=== PATIENT | female | born 1995 | race Caucasian/White ===

== ENCOUNTER 2017-05-24 15:43 | Outpatient (CLI) | payer MEDICAID | END 2017-05-24 16:38 | disposition home or self-care (01) | LOC: LC 15:43 | PROVIDERS: ATTEND Student in an Organized Health Care Education/Training Program | PROC: 4A1HXCZ Monitoring of Products of Conception, Cardiac Rate, External Approach (ICD-10-PCS; principal; 2017-05-24) | DX: Z34.93 Encounter for supervision of normal pregnancy, unspecified, third trimester (principal); Z36 Encounter for antenatal screening of mother; Z3A.38 38 weeks gestation of pregnancy | CPT/HCPCS: 59025 ==

== ENCOUNTER 2017-05-26 21:23 | Inpatient (IN) | payer MEDICAID ==
[2017-05-26] MEDS ORDERED: DEXTROSE 50%-WATER 25 GM/50 ML DISP.SYRIN IV PRN ×2 (22:01)
[2017-05-26] MEDS ORDERED: GLUCAGON,HUMAN RECOMB 1 MG INJ SUBCUT PRN (22:01)
[2017-05-26] MEDS ORDERED: DEXTROSE 40% GEL 15 GM TUBE PO PRN ×2 (22:01)
[2017-05-26 22:45] LABS: ABSOLUTE BASOPHILS # (AUTO) 0.1 10^3/uL (0.0-0.2); ABSOLUTE EOSINOPHILS # (AUTO) 0.3 10^3/uL (0.0-0.6); ABSOLUTE LYMPHOCYTES (AUTO) 3.9 10^3/uL (0.5-4.7); ABSOLUTE MONOCYTES (AUTO) 1.2 10^3/uL (0.1-1.4); ABSOLUTE NEUT (AUTO) 7.3 10^3/uL (1.7-8.2); BASOPHILS % (AUTO) 0.4 % (0-2); EOSINOPHILS % (AUTO) 2.2 % (0-6); HEMATOCRIT 31.8 % (36.0-47.0); HEMOGLOBIN 11.3 g/dL (12.0-15.5); HGB HCT DIFFERENCE 2.1; LYMPHOCYTES % (AUTO) 30.7 % (13-45); MEAN CORPUSCULAR HEMOGLOBIN 33.4 pg (27.0-33.4); MEAN CORPUSCULAR HGB CONC 35.5 g/dL (32.0-36.0); MEAN CORPUSCULAR VOLUME 94 fl (80-97); MONOCYTES % (AUTO) 9.1 % (3-13); RED BLOOD COUNT 3.37 10^6/uL (3.72-5.28); SEGMENTED NEUTROPHILS % (AUTO) 57.6 % (42-78); WHITE BLOOD COUNT 12.7 10^3/uL (4.0-10.5)
[2017-05-27] MEDS ORDERED: INFLUENZA ADLT QUAD (36MOS+) 2017-18 VAC 0.5 ML SYR IM PRN (00:04)
[2017-05-27 01:23] LABS: APPEARANCE,URINE SLIGHTLY-CLOUDY; BILIRUBIN,URINE NEGATIVE (NEGATIVE); GLUCOSE, URINE NEGATIVE (NEGATIVE); KETONES,URINE NEGATIVE (NEGATIVE); LEUKOCYTE ESTERASE,URINE SMALL (NEGATIVE); NITRITE,URINE NEGATIVE (NEGATIVE); PROTEIN,URINE NEGATIVE (NEGATIVE)
[2017-05-27 03:02] LABS: URINE BARBITURATES SCREEN NEGATIVE; URINE METHADONE SCREEN NEGATIVE; URINE OPIATES LOW NEGATIVE; URINE PHENCYCLIDINE SCREEN NEGATIVE
[2017-05-27] MEDS: RINGERS SOLUTION,LACTATED 1,000 ML IV PRN ×2 (08:54→09:37)
[2017-05-27] MEDS ORDERED: RINGERS SOLUTION,LACTATED 1,000 ML IV PRN (09:15)
[2017-05-27] MEDS ORDERED: EPHEDRINE SULFATE INJ 50 MG/1 ML AMPULE ONE (10:28)
[2017-05-27] MEDS ORDERED: OXYTOCIN/NORMAL SALINE 20 UNIT/1,000 ML RTUINJ ONE (10:28)
[2017-05-27] MEDS ORDERED: MIDAZOLAM 2 MG/2 ML INJ ONE (10:28)
[2017-05-27] MEDS ORDERED: FENTANYL CITRATE INJ/PF 100 MCG/2 ML AMPUL ONE (10:28)
[2017-05-27] MEDS ORDERED: OXYTOCIN 10 UNIT/ML VIAL ONE (10:28)
[2017-05-27] MEDS ORDERED: ONDANSETRON HCL INJ/PF 4 MG/2 ML SDV ONE (11:07)
[2017-05-27] MEDS ORDERED: DEXAMETHASONE SOD PHOSPHATE INJ 4 MG/1 ML VIAL ONE (11:07)
[2017-05-27] MEDS ORDERED: METOCLOPRAMIDE HCL INJ/PF 10 MG/2 ML SDV ONE (11:07)
[2017-05-27] MEDS ORDERED: OXYTOCIN/NORMAL SALINE 20 UNIT/1,000 ML RTUINJ INJ PRN ×2 (11:49→14:30)
[2017-05-27] MEDS ORDERED: RINGERS SOLUTION,LACTATED 1,000 ML IV SCH ×2 (12:00→14:30)
[2017-05-27] MEDS ORDERED: ACETAMINOPHEN 325 MG TABLET PO PRN (12:00)
[2017-05-27] MEDS ORDERED: HYDROMORPHONE HCL INJ/PF 2 MG/ML AMPULE IV PRN (12:00)
[2017-05-27] MEDS ORDERED: PROMETHAZINE HCL INJ 25 MG/1 ML VIAL IM PRN ×2 (12:00→14:30)
[2017-05-27] MEDS ORDERED: OXYCODONE-ACETAMINOPHEN 5-325 MG TABLET PO PRN ×2 (12:00)
[2017-05-27] MEDS ORDERED: DIPH/PERTUSS(ACELL)/TETANUS VAC/PF 0.5 ML SYR (>=10YO) IM PRN ×2 (12:00→14:30)
[2017-05-27] MEDS ORDERED: IBUPROFEN 800 MG TABLET PO SCH (12:00)
[2017-05-27] MEDS ORDERED: MEASLES,MUMPS&RUBELLA VACC/PF 0.5 ML VIAL SUBCUT PRN ×2 (12:00→14:30)
[2017-05-27] MEDS ORDERED: SIMETHICONE 80 MG TAB.CHEW PO PRN ×2 (12:00→14:30)
[2017-05-27] MEDS ORDERED: CLINDAMYCIN 900 MG/D5W RTU 50 ML IV PRN (12:09)
[2017-05-27] MEDS ORDERED: PROMETHAZINE HCL INJ 25 MG/1 ML VIAL IV PRN ×2 (12:56)
[2017-05-27] MEDS ORDERED: DIPHENHYDRAMINE HCL 50 MG/ML VIAL IV PRN ×2 (12:56→17:27)
[2017-05-27] MEDS ORDERED: MORPHINE SULFATE 10 MG/ML INJ IV PRN (12:56)
[2017-05-27] MEDS ORDERED: MEPERIDINE HCL/PF INJ 25 MG/1 ML DISP.SYRIN IV PRN (12:56)
[2017-05-27] MEDS ORDERED: ONDANSETRON HCL INJ/PF 4 MG/2 ML SDV IV PRN (12:56)
[2017-05-27] MEDS ORDERED: FENTANYL CITRATE INJ/PF 100 MCG/2 ML AMPUL IV PRN ×3 (12:56)
--- NOTE | 2017-05-27 13:27 | Non Stress Test Report ---
Non Stress Test Datetime Report Generated by CPN: 05/27/2017 13:27 DEMOGRAPHIC EGA NST: 38.5 INDICATION Indication for Study: Ordered by Provider MONITORING Monitor Explained: Monitor Explained; Test Explained; Patient Verbalized Understanding Time on Monitor: 05/24/2017 15:41 Time off Monitor: 05/24/2017 16:10 NST Duration: 29 NST INTERVENTIONS NST Interventions: PO Hydration; Reposition Patient Physician Notified NST: Dr. Olson BABY A: [id number] BABY A Movement : Present Contraction Frequency : Irritability FHR Baseline : 135 Accelerations : 15X15 Variability : Moderate 6-25bpm NST Review: Meets Criteria for Reactive NST NST Review and Verified By : VALENCIA Moon Results: Reactive NST REPORT Report Trigger: Send Report
--- NOTE | 2017-05-27 14:08 | OPERATIVE REPORT E ---
Operative Report NAME: GENIA VEGA : 1995 AGE: 22Y DATE OF SURGERY: 05/27/2017 ROOM: 227 PREOPERATIVE DIAGNOSES: 1. A 39-week 1-day intrauterine . 2. Oligohydramnios. 3. Intrauterine growth retardation. 4. Breech presentation. 5. Bicornuate uterus. POSTOPERATIVE DIAGNOSES: 1. A 39-week 1-day intrauterine . 2. Oligohydramnios. 3. Intrauterine growth retardation. 4. Breech presentation. 5. Bicornuate uterus. OPERATION: Primary low-transverse section. SURGEON: Oscar Oconnell D.O. QUALITY CONTROL ASSISTANT: None. ANESTHESIA: Spinal. COMPLICATIONS: None. ESTIMATED BLOOD LOSS: 600 mL. PATHOLOGY: Placenta. FINDINGS: 1. Viable female infant at 1326 hours on 05/27/2017; Apgars 9 at one, 9 at five. 2. Normal-appearing bilateral fallopian tubes and ovaries. 3. Infant in double footling breech presentation. DESCRIPTION OF PROCEDURE: The patient was taken to the operating room where her epidural anesthesia was administered. Once this was done, she was placed in the dorsal supine position with a leftward tilt upon the operating room table. She was then prepped and draped in a normal sterile fashion. A scalpel was then used to make a Pfannenstiel skin incision. The skin incision was carried down through the subcutaneous tissues to the layer of the fascia. The fascia was incised at the midline and the fascial incision was then extended bilaterally using the Bovie cautery. The superior fascial edge was grasped with Carmencita clamps, elevated and the rectus muscles dissected off sharply and bluntly. Attention was then turned to the inferior fascial edge, which was grasped with Carmencita clamps, elevated and rectus muscles dissected off sharply and bluntly. The rectus muscles were then in the midline, perineum identified and entered bluntly with the surgeon's hands. A bladder blade was inserted. A scalpel was then used to make a low transverse hysterotomy incision. The was found to be in double footling breech presentation and delivered through this incision in the breech presentation using the breech maneuvers. The infant was delivered atraumatically and without difficulty. The nose and mouth were suctioned. The cord was clamped and cut. The infant was handed off to the awaiting nurses. The placenta was then manually removed from the uterus. The uterus was exteriorized and cleared of all clots and debris. The hysterotomy incision was then reapproximated using 2 layers of 1-0 Vicryl in a running locking fashion, followed closely with a second layer. Excellent hemostasis was noted. The uterus was then returned to the abdomen. Again, the hysterotomy was reinspected and found to have excellent hemostasis. The rectus muscles were then reapproximated using 1-0 Vicryl interrupted sutures. The fascia was then closed using 1-0 Vicryl in a running, non-locking fashion. The subcutaneous space was then made hemostatic using Bovie cautery. The skin was then closed with absorbable ai, covered with an Op-Site, and then with a pressure dressing. At this point in time, the procedure was terminated. All sponge, lap and needle counts were correct x2. The patient tolerated the procedure well. The patient was taken to the recovery room in stable condition. DICTATING PHYSICIAN: Oscar Oconnell DO [id number] PHY#: [id number] ID: [id number] JOB#: [id number] ACCT: [id number] cc:Oscar Oconnell D.O. >
[2017-05-27] MEDS ORDERED: OXYCODONE HCL IR 5 MG TABLET PO PRN (14:36)
[2017-05-27] MEDS: HYDROMORPHONE HCL INJ/PF 2 MG/ML AMPULE IV PRN ×2 (15:00→22:57)
[2017-05-27] MEDS ORDERED: HYDROMORPHONE HCL INJ/PF 2 MG/ML AMPULE ONE (15:03)
--- NOTE | 2017-05-27 16:30 | Admission Physical ---
Datetime Report Generated by CPN: 05/27/2017 16:30 CURRENT ADMISSION Hx Assessment: The History has been Reviewed and is Current Chief Complaint: Scheduled Section Indication for Induction: Not Applicable Indication for Induction: Term, Intrauterine ; No Active Labor; Primary Section Admit Plan: Admit to Unit; Initiate Section Protocol ALLERGIES Medication Allergies: Yes Medication Allergies: acetaminophen/MO/rash, upset sto (05/27/2017); ibuprofen/rash, swelling (05/24/2017); naproxen/rash, swelling (05/24/2017); amoxicillin/rash, swelling (05/24/2017) Medication Allergies: acetaminophen/rash, upset sto (05/24/2017); ibuprofen/rash, swelling (05/24/2017); naproxen/rash, swelling (05/24/2017); amoxicillin/rash, swelling (05/24/2017) Medication Allergies: acetaminophen/rash, upset sto (10/27/2014); ibuprofen/rash, swelling (10/27/2014); naproxen/rash, swelling (10/27/2014); amoxicillin/rash, swelling (10/27/2014) OBSTETRICAL HISTORY EDC: 06/02/2017 00:00 : 1 Para: 0 Term: 0 : 0 SAB: 0 IAB: 0 Livin Rh Sensitization: No Infertility: No ART Treatment: No Uterine Anomaly: Yes Hx Loss/Stillborn: No Depression/PP Depression: No Obstetrical History Comments: g1-current , iugr less than 3rd percentile, breech, bicornate uterus SEE RECORDS Marijuana : Yes MEDICAL HISTORY Diabetes: No Blood Transfusion: No Pulmonary Disease (Asthma, TB): No Breast Disease: No Hypertension: No Top Icer Surgery: No Heart Disease: No Hosp/Surgery: No Autoimmune Disorder: No Anesthetic Complications: Unknown Kidney Disease: Yes Abnormal Pap Smear: No Neuro/Epilepsy: No Psychiatric Disorders: Yes Other Medical Diseases: No Hepatitis/Liver Disease: No Significant Family History: No Varicosities/Phlebitis: No Trauma/Violence : No Thyroid Dysfunction: No Medical History Comments: bipolar, depression, anxiety, sleep disturbance, health dept records report latuda usage, marijuana usage in , decreased peristalsis in colon, cyst in jaw, anemia, ecoli in urine, patient born 3 months early, eye surgery INFECTIOUS HISTORY Gonorrhea: No Genital Herpes: No Chlamydia: No Tuberculosis: No Syphilis: No Hepatitis: No HIV/AIDS Exposure: No Rash or Viral Illness: No HPV: No PHYSICAL EXAM General: Normal HEENT: Normal Neurologic: Normal Thyroid: Normal Heart: Normal Lungs: Normal Breast: Deferred Back: Normal Abdomen: Normal Genitourinary Exam: Normal Extremities: Normal DTRs: Normal Pelvic Type: Adequate Vital Signs: Reviewed VAGINAL EXAM Effacement: th MEMBRANES Membranes: Intact FETUS A Monitoring: External US Decelerations: None FHR Comments: NST on 05/24 CAT I Estimated Weight (gm): 2324 Presentation: Breech Admit Comment: 22yo at 39+0ega presents for scheduled c/s planned for tomorrow. Here for NST due to IUGR noted on 05/24/2017. US on 05/24 noted EFW 2324g (US on 04/26 EFW 2143g) S/D ratio 1.9 and YURIDIA 6.29cm (SDP 2.3cm). Case reviewed with Dr. Demarco on 05/24 and recommended since reactive NST with normal YURIDIA and S/D ratio plan for c/s on Saturday. Breech presentation. Bicornuate uterus and in left horn. Not a good candidate for ECV. c/b depression/anxiety and [facility] on . THC use. Chronic constipation prior to on . Admit to and will obtain NST and plan for C/S in am - reviewed plan with Dr. Oconnell. NPO after midnight. Routine C/S ordered. GBS negative. Due to limited understanding and education and need for repeat NST due to IUGR pt admitted tonight for prep for . PLANS FOR LABOR AND DELIVERY Feeding Preference: Breast Benefit of Breast Feed Discussed: Yes (Annotations: Data stored by CPN on behalf of user) INFORMED CONSENT Informed Consent Obtained: Section Delivery; Risks, Benefits and Alternatives Discussed Signature: with User ID: [email or web address]
[2017-05-27] MEDS: OXYCODONE HCL IR 5 MG TABLET PO PRN ×2 (16:37→20:45)
[2017-05-27] MEDS ORDERED: DIPHENHYDRAMINE HCL 50 MG CAPSULE PO PRN (17:25)
[2017-05-27] MEDS: DOCUSATE SODIUM 100 MG CAPSULE PO SCH (17:36)
[2017-05-27] MEDS ORDERED: DOCUSATE SODIUM 100 MG CAPSULE PO SCH (18:00)
[2017-05-28] MEDS: OXYCODONE HCL IR 5 MG TABLET PO PRN ×6 (01:16→23:54)
[2017-05-28 06:11] LABS: HEMATOCRIT 32.6 % (36.0-47.0); HEMOGLOBIN 11.5 g/dL (12.0-15.5); HGB HCT DIFFERENCE 1.9; MEAN CORPUSCULAR HEMOGLOBIN 32.8 pg (27.0-33.4); MEAN CORPUSCULAR HGB CONC 35.2 g/dL (32.0-36.0); MEAN CORPUSCULAR VOLUME 93 fl (80-97); RED CELL DISTRIBUTION WIDTH 13.1 % (11.5-14.0); WHITE BLOOD COUNT 21.9 10^3/uL (4.0-10.5)
--- NOTE | 2017-05-28 09:36 | PDOC PROGRESS REPORT ---
Subjective-OB Subjective: Post Delivery Day: 22 year old. Denies any needs at this time Physical Exam (OB) Vital Signs: Temp Pulse Resp BP Pulse Ox 98.5 F 86 14 122/86 H 99 05/28/17 08:33 05/28/17 08:33 05/28/17 08:33 05/28/17 08:33 05/28/17 08:33 Intake & Output 05/27/17 05/28/17 05/29/17 06:59 06:59 06:59 Intake Total 1500 Output Total 3000 Balance -1500 Weight 68.9 kg - Dressing Removed: No Incision: Dressing Closure Type: Sutures - Lochia Lochia Amount: Scant < 10 ml Lochia Color: Rubra/Red - Abdomen Description: Tender, Soft Hernia Present: No Bowel Sounds: Normoactive Flatus Presence: Present Stool: No Fundal Description: Firm, Midline Fundal Height: u/u - u/2 Objective-Diagnostic Laboratory: 05/28/17 05:55 05/28/17 05:55 WBC 21.9 H RBC 3.50 L Hgb 11.5 L Hct 32.6 L MCV 93 MCH 32.8 MCHC 35.2 RDW 13.1 Plt Count 242
[2017-05-28] MEDS: DOCUSATE SODIUM 100 MG CAPSULE PO SCH ×2 (09:58→18:29)
[2017-05-28] MEDS: PRENATAL VITAMIN W-O CA NO5/FE FUMARATE/FA CAPSULE PO SCH (09:58)
[2017-05-28] MEDS ORDERED: PRENATAL VITAMIN W-O CA NO5/FE FUMARATE/FA CAPSULE PO SCH (10:00)
[2017-05-29] MEDS: OXYCODONE HCL IR 5 MG TABLET PO PRN ×5 (04:13→21:52)
[2017-05-29 08:45] LABS: HEMATOCRIT 34.6 % (36.0-47.0); HGB HCT DIFFERENCE 1.4; MEAN CORPUSCULAR HGB CONC 34.7 g/dL (32.0-36.0); MEAN CORPUSCULAR VOLUME 95 fl (80-97); RED BLOOD COUNT 3.64 10^6/uL (3.72-5.28); RED CELL DISTRIBUTION WIDTH 13.2 % (11.5-14.0); WHITE BLOOD COUNT 15.7 10^3/uL (4.0-10.5)
--- NOTE | 2017-05-29 09:11 | PDOC PROGRESS REPORT ---
Subjective-OB Subjective: Post Delivery Day: 2 22 year old. Reporting pain 5/5, having difficulty with ambulation, states lochia is stable, passing gas, tolerating diet, voiding without difficulty, family at bedside. Physical Exam (OB) Vital Signs: Temp Pulse Resp BP Pulse Ox 97.8 F 88 16 114/80 97 05/29/17 08:41 05/29/17 08:41 05/29/17 08:41 05/29/17 08:41 05/29/17 08:41 Intake & Output 05/28/17 05/29/17 05/30/17 06:59 06:59 06:59 Intake Total 1500 250 Output Total 3000 Balance -1500 250 - PIH/Pre-Eclampsia DTR's: 2 + Clonus: Negative Headache: Absent Epigastric Pain: No Visual Changes: No - Dressing Removed: Yes Incision: Dressing Closure Type: op site - Lochia Lochia Amount: Small 10-25 ml Lochia Color: Rubra/Red - Abdomen Description: Soft, Round Hernia Present: No Fundal Description: Firm, Midline Fundal Height: u/u - u/2 Objective-Diagnostic Laboratory: 05/29/17 08:02 05/29/17 08:02 WBC 15.7 H RBC 3.64 L Hgb 12.0 Hct 34.6 L MCV 95 MCH 33.0 MCHC 34.7 RDW 13.2 Plt Count 250 Assessment and Plan(PN) - Assessment and Plan (1) delivery delivered Is this a current diagnosis for this admission?: Yes Plan: post op care encourage ambulation (2) Bicornuate uterus affecting in third trimester, antepartum Is this a current diagnosis for this admission?: Yes Plan: n/a (3) Breech presentation Qualifiers: Fetus number: single or unspecified fetus Qualified Code(s): O32.1XX0 - Maternal care for breech presentation, not applicable or unspecified Is this a current diagnosis for this admission?: Yes Plan: n/a (4) History of depression Is this a current diagnosis for this admission?: Yes Plan: d/c landscape architect and planner close follow up (5) Marijuana use Is this a current diagnosis for this admission?: Yes Plan: d/c landscape architect and planner - Time Spent with Patient Time with patient: Less than 15 minutes Critical Time spent with patient: Less than 15 minutes Medications reviewed and adjusted accordingly: Yes - Disposition Anticipated Discharge: Home Within: within 24 hours
[2017-05-29] MEDS: DOCUSATE SODIUM 100 MG CAPSULE PO SCH ×2 (09:17→17:52)
[2017-05-29] MEDS: PRENATAL VITAMIN W-O CA NO5/FE FUMARATE/FA CAPSULE PO SCH (09:17)
--- NOTE | 2017-05-29 11:20 | Delivery Summary ---
Del Sum A-C Datetime Report Generated by CPN: 05/29/2017 11:20 DELIVERY PERSONNEL DELIVERY PERSONNEL: [id number] Delivery Doctor:: Oscar Oconnell DO Anesthesiologist:: Christiano Pino MD OWNER CONSULTING ENGINEER:: Danna Dee CRNA Labor and Delivery Nurse:: Omid STROUD RNhealth management consultant Nurse:: Daphnie Mulligan RN Third Rigger:: Omid STROUD RNtestboard operator Nurse Practitioner:: JANESSA Mcpherosn Nursery Nurse:: Dada DEAN RN Nursery Nurse:: Kerrie Dean Nursery Nurse:: Jessica DACOSTA RN Loan And Credit Manager/SECURITY PUBLIC SAFETY OFFICER: Isabel Rievra CST Loan And Credit Manager/SECURITY PUBLIC SAFETY OFFICER: [facility] MATERNAL INFORMATION Delivery Anesthesia: Spinal Medications After Delivery: Pitocin Bolus-Please Comment; Pitocin Drip 20 Units/1000ml NSS Maternal Complications: None LABOR SUMMARY EDC: 06/02/2017 00:00 No. Babies in Womb: 1 Attempted: No Labor Anesthesia: None LABOR INFORMATION Reason for Induction: Not Applicable Oxytocin: N/A Group B Beta Strep: negative Antibiotics # of Doses: 0 Steroids Given: None Reason Steroids Not Administered: Not Applicable MEMBRANES Membranes Rupture Method: Artificial Rupture of Membranes: 05/27/2017 13:25 Length of Rupture (hr): 0.02 Amniotic Fluid Color: Clear Amniotic Fluid Amount: Small STAGES OF LABOR Stage 3 hr: 0 Stage 3 min: 2 CSECTION DELIVERY Primary Indication: Breech Presentation CSection Urgency: Scheduled CSection Incidence: Primary Labor: N/A Elective: Nonelective CSection Incision: Lower Uterine Transverse BABY A INFORMATION Infant Delivery Date/Time: 05/27/2017 13:26 Method of Delivery: Born in Route : No : N/A Forceps: N/A Vacuum Extraction: N/A Shoulder Dystocia : No PRESENTATION/POSITION BABY A Presentation: Breech Cephalic Presentation: N/A Vertex Position: n/a Breech Presentation: Jian PLACENTA INFORMATION BABY A Placenta Delivery Time : 05/27/2017 13:28 Placenta Method of Delivery: Manual Removal Placenta Status: Delivered Placenta Status: Delivered SCORES BABY A Heart Rate 1 min: >100 bpm Resp Effort 1 min: Good Cry Reflex Irritability 1 min: Cough or Sneeze or Pulls Away Muscle Tone 1 min: Active Motion Color 1 min: Body [place], Extremities Blue Resuscitation Effort 1 min: Tactile Stimulation SCORE 1 MIN: 9 Heart Rate 5 min: >100 bpm Resp Effort 5 min: Good Cry Reflex Irritability 5 min: Cough or Sneeze or Pulls Away Muscle Tone 5 min: Active Motion Color 5 min: Body [place], Extremities Blue SCORE 5 MIN: 9 INFORMATION BABY A Gestational Age at Delivery: 39.1 Gestational Status: Full Term- 39- 40.6 Weeks Infant Outcome : Liveborn Condition : Stable Infant Sex: Female IDENTIFICATION BABY A Infant Verification Date/Time: 05/27/2017 13:26 ID Band Number: [id number] Mother's Name Verified: Yes RN Verifying : Omid STROUD RN Additional Verifying Personnel: HARMEET MULLIGAN RN WEIGHT/LENGTH BABY A Infant Birthweight (gm): 2410 Infant Weight (lb): 5 Weight (oz): 5 Infant Length (in): 19.25 Length (cm): 48.90 CORD INFORMATION BABY A No. Cord Vessels: 3 Nuchal Cord : N/A Cord Blood Taken: Yes-For Eval (Mom's Blood Type - or O+) Suction: Mouth; Nose ASSESSMENT BABY A Complications: Oligohydramnios; Other Complications- Other: IUGR Skin to Skin: No Care By: L KREILEY, RN Transferred To: Nursery BABY B INFORMATION : N/A
[2017-05-30] MEDS: OXYCODONE HCL IR 5 MG TABLET PO PRN ×3 (01:25→11:54)
[2017-05-30] MEDS: PRENATAL VITAMIN W-O CA NO5/FE FUMARATE/FA CAPSULE PO SCH (09:15)
[2017-05-30] MEDS: DOCUSATE SODIUM 100 MG CAPSULE PO SCH (09:15)
[2017-05-30 12:41] VITALS: BP 130/80
--- NOTE | 2017-05-30 13:22 | PDOC DISCHARGE SUMMARY ---
Final Diagnosis Discharge Date: 05/30/17 - Final Diagnosis (1) Breech presentation Is this a current diagnosis for this admission?: Yes (2) delivery delivered Is this a current diagnosis for this admission?: Yes (3) Term Is this a current diagnosis for this admission?: Yes Discharge Data - Discharge Medication Home Medications: Linaclotide [Linzess 145 Mcg Capsule] 145 mcg PO DAILY 05/24/17 Lurasidone HCl [Latuda 40 mg Tablet] 40 mg PO DAILY 05/24/17 Reason(s) for Admission: Ceasarean Section-Primary Procedures: None, Management of Obstetric Complications Intrapartum Procedure(s): : Low Cervical, Transverse - Diagnosis Test Laboratory: Temp Pulse Resp BP Pulse Ox 98.3 F 94 16 130/80 H 98 05/30/17 12:25 05/30/17 12:25 05/30/17 12:25 05/30/17 12:25 05/30/17 12:25 05/26/17 05/27/17 05/28/17 22:25 00:45 05:55 RBC 3.37 L 3.50 L Hgb 11.3 L 11.5 L Hct 31.8 L 32.6 L Urine Opiates Screen NEGATIVE 05/29/17 08:02 RBC 3.64 L Hgb 12.0 Hct 34.6 L Urine Opiates Screen - Discharge information/Instructions Discharge Activity: Balance Activity w/Rest, No Lifting Over 10 Pounds, Pelvic Rest Discharge Diet: Regular Disposition: HOME, SELF-CARE Follow up with: [facility] in: 5, Days
[2017-05-30] MEDS ORDERED: MEDROXYPROGESTERONE ACET INJ 150 MG/1 ML VIAL IM ONE ×2 (15:00→15:30)
== END 2017-05-30 17:26 | disposition home or self-care (01) | DRG 765 ==
LOC: LR 21:23 → 2S 21:36
PROVIDERS: ADMIT Obstetrics & Gynecology; ATTEND Obstetrics & Gynecology
PROC: 10D00Z1 Extraction of Products of Conception, Low, Open Approach (ICD-10-PCS; principal; 2017-05-27)
PROC: 3E0234Z Introduction of Serum, Toxoid and Vaccine into Muscle, Percutaneous Approach (ICD-10-PCS; 2017-05-30)
DX: O32.1XX0 Maternal care for breech presentation, not applicable or unspecified (principal); O99.324 Drug use complicating childbirth; O41.03X0 Oligohydramnios, third trimester, not applicable or unspecified; O36.5930 Maternal care for other known or suspected poor fetal growth, third trimester, not applicable or unspecified; O34.03 Maternal care for unspecified congenital malformation of uterus, third trimester; F12.90 Cannabis use, unspecified, uncomplicated; O99.344 Other mental disorders complicating childbirth; F41.8 Other specified anxiety disorders; Q51.3 Bicornate uterus; Z3A.39 39 weeks gestation of pregnancy; Z37.0 Single live birth; Z23 Encounter for immunization
CPT/HCPCS: 1961; 36415; 59025; 80307; 81005; 85025; 85027; 86850; 86900; 86901; 88307; 90686; 94799; G0480; J1050; J1100; J1170; J2250; J2405; J2590; J2765; J3010; J3490; J7120

== ENCOUNTER 2017-06-01 11:48 | Emergency (ER) | payer MEDICAID ==
[2017-06-01 12:05] VITALS: BP 131/84
--- NOTE | 2017-06-01 12:20 | ER Document Report ---
ED General - General Chief Complaint: Post Problem Stated Complaint: INCISION SITE BLEEDING Time Seen by Provider: 06/01/17 12:20 Mode of Arrival: Wheelchair Information source: Patient, Relative Notes: 22-year-old female who had a recent for a breech presents with concerns of dried blood around the incision site. Patient denies any abdominal pain denies any fevers or chills. Patient denies any drainage from the incision TRAVEL OUTSIDE OF THE [place] IN LAST 30 DAYS: No - HPI Onset: This morning Onset/Duration: Sudden Quality of pain: No pain Severity: Mild Pain Level: Denies Associated symptoms: Other Exacerbated by: Denies Relieved by: Denies Similar symptoms previously: No Recently seen / treated by doctor: No - Related Data Allergies/Adverse Reactions: amoxicillin [Amoxicillin] Allergy (Verified 06/01/17 12:02) rash, swelling ibuprofen Allergy (Verified 06/01/17 12:02) rash, swelling naproxen [Naproxen] Allergy (Verified 06/01/17 12:02) rash, swelling acetaminophen [From Tylenol] Adverse Reaction (Intermediate, Verified 06/01/17 12:02) rash, upset stomach Past Medical History - Social History Smoking Status: Never Smoker Cigarette use (# per day): No Chew tobacco use (# tins/day): No Smoking Education Provided: No Frequency of alcohol use: None Drug Abuse: None Family History: None - Past Medical History Cardiac Medical History: Denies: Hx Coronary Artery Disease, Hx Heart Attack, Hx Hypertension - low BP Pulmonary Medical History: Denies: Hx Asthma, Hx Bronchitis, Hx COPD, Hx Pneumonia Neurological Medical History: Denies: Hx Cerebrovascular Accident, Hx Seizures - possibly as a child Renal/ Medical History: Denies: Hx Peritoneal Dialysis Musculoskeltal Medical History: Reports Hx Arthritis - hands & knees Psychiatric Medical History: Reports: Hx Bipolar Disorder, Hx Depression Traumatic Medical History: Reports: Hx Fractures - right arm Past Surgical History: Reports: Hx Section - Immunizations Immunizations up to date: Yes Hx Diphtheria, Pertussis, Tetanus Vaccination: Yes Review of Systems - Review of Systems Notes: REVIEW OF SYSTEMS: CONSTITUTIONAL : Denies fever, chills, or sweats. Denies recent illness. EENT: Denies eye, ear, throat, or mouth pain or symptoms. Denies nasal or sinus congestion or discharge. Denies throat, tongue, or mouth swelling or difficulty swallowing. CARDIOVASCULAR: Denies chest pain. Denies palpitations or racing or irregular heart beat. Denies ankle edema. RESPIRATORY: Denies cough, cold, or chest congestion. Denies shortness of breath, difficulty breathing, or wheezing. GASTROINTESTINAL: Denies abdominal pain or distention. Denies nausea, vomiting , or diarrhea. Denies blood in vomitus, stools, or per rectum. Denies black, tarry stools. Denies constipation. GENITOURINARY: Denies difficulty urinating, painful urination, burning, frequency, blood in urine, or discharge. FEMALE GENITOURINARY: Denies vaginal bleeding, heavy or abnormal periods, irregular periods. Denies vaginal discharge or odor. MUSCULOSKELETAL: Denies back or neck pain or stiffness. Denies joint pain or swelling. SKIN: Admits to bleeding from incision site HEMATOLOGIC : Denies easy bruising or bleeding. LYMPHATIC: Denies swollen, enlarged glands. NEUROLOGICAL: Denies confusion or altered mental status. Denies passing out or loss of consciousness. Denies dizziness or lightheadedness. Denies headache. Denies weakness or paralysis or loss of use of either side. Denies problems with gait or speech. Denies sensory loss, numbness, or tingling. Denies seizures. PSYCHIATRIC: Denies anxiety or stress. Denies depression, suicidal ideation, or homicidal ideation. ALL OTHER SYSTEMS REVIEWED AND NEGATIVE. PHYSICAL EXAMINATION: GENERAL: Well-appearing, well-nourished and in no acute distress. HEAD: Atraumatic, normocephalic. ENT: Nares patent, oropharynx clear without exudates. Moist mucous membranes. NECK: Normal range of motion, supple without lymphadenopathy LUNGS: Breath sounds clear to auscultation bilaterally and equal. No wheezes rales or rhonchi. HEART: Regular rate and rhythm without murmurs ABDOMEN: distended post delivery abd Female : deferred Musculoskeletal: Normal range of motion, no pitting or edema. No cyanosis. NEUROLOGICAL: Cranial nerves grossly intact. Normal speech, normal gait. Normal sensory, motor exams PSYCH: Normal mood, normal affect. SKIN: surgical incision dried blood Dictation was performed using disco volante voice recognition software Physical Exam - Vital signs Vitals: Temp Pulse Resp BP Pulse Ox 98.2 F 96 18 131/84 H 98 06/01/17 12:04 06/01/17 12:04 06/01/17 12:04 06/01/17 12:04 06/01/17 12:04 Course - Re-evaluation Re-evalutation: 06/01/17 12:37 Patient surgical incision looks quite well, there is a little bit of dried blood no signs of infection no active bleeding patient overall looks well is in no distress and will be discharged home with new dressing in place very strict return precautions for further bleeding as well as infection After performing a Medical Screening Examination, I estimate there is LOW risk for OPEN FRACTURE, COMPARTMENT SYNDROME, TENDON RUPTURE, ACUTE NEUROVASCULAR INJURY, or RETAINED FOREIGN BODY, thus I consider the discharge disposition reasonable. Also, there is no evidence or peritonitis, sepsis, or toxicity. I have reevaluated this patient multiple times and no significant life threatening changes are noted. The patient and I have discussed the diagnosis and risks, and we agree with discharging home with close follow-up with the understanding that symptoms and presentations can change. We also discussed returning to the Emergency Department immediately if new or worsening symptoms occur. We have discussed the symptoms which are most concerning (e.g., changing or worsening pain, fever, numbness, weakness, cool or painful digits) that necessitate immediate return. - Vital Signs Vital signs: Temp Pulse Resp BP Pulse Ox 98.2 F 96 18 131/84 H 98 06/01/17 12:04 06/01/17 12:04 06/01/17 12:04 06/01/17 12:04 06/01/17 12:04 Discharge - Discharge Clinical Impression: section wound complication Condition: Stable Disposition: HOME, SELF-CARE Additional Instructions: Please clean wound as needed make sure there is no sign of infection redness pus or fevers or severe bleeding Return immediately if there are any other concerns
== END 2017-06-01 12:30 | disposition home or self-care (01) ==
LOC: ER 11:48
DX: O90.89 Other complications of the puerperium, not elsewhere classified (principal); Z88.0 Allergy status to penicillin; Z88.6 Allergy status to analgesic agent; Z88.8 Allergy status to other drugs, medicaments and biological substances
CPT/HCPCS: 99283

== ENCOUNTER → 2019-01-15 | Outpatient (CLI) | payer MEDICAID ==
--- NOTE | 2019-01-15 12:54 | RADIOLOGY REPORT (SQ) ---
EXAM DESCRIPTION: FOOT RIGHT COMPLETE COMPLETED DATE/TIME: 01/15/2019 12:02 pm REASON FOR STUDY: INJURY OF RT FOOT INCLUDING TOES S99.921A UNSPECIFIED INJURY OF RIGHT FOOT, INITI AL ENCOUNTER COMPARISON: None. NUMBER OF VIEWS: Three views. TECHNIQUE: AP, lateral and oblique radiographic images acquired of the right foot. LIMITATIONS: None. FINDINGS: MINERALIZATION: Normal. BONES: No acute fracture or dislocation. No worrisome bone lesions. JOINTS: No effusions. SOFT TISSUES: No soft tissue swelling. No foreign body. OTHER: No other significant finding. IMPRESSION: NEGATIVE STUDY OF THE RIGHT FOOT. NO RADIOGRAPHIC EVIDENCE OF ACUTE INJURY. TECHNICAL DOCUMENTATION: JOB ID: [id number] [employer]- All Rights Reserved Reading location - IP/workstation name: [email or web address]
== END ==
LOC: OD 11:15
PROVIDERS: ATTEND Nurse Practitioner Acute Care
DX: S99.921A Unspecified injury of right foot, initial encounter (principal); X58.XXXA Exposure to other specified factors, initial encounter

== ENCOUNTER 2019-05-20 11:38 | Emergency (ER) | payer MEDICAID ==
--- NOTE | 2019-05-20 11:48 | ER Document Report ---
ED Medical Screen (RME) - General Chief Complaint: Psych Problem Stated Complaint: PSYCH Time Seen by Provider: 05/20/19 11:43 Primary Care Provider: DESTINY ALEXANDER NP [Primary Care Provider] - Follow up as needed Mode of Arrival: Ambulatory Information source: Patient Notes: 24-year-old female presents emergency department with suicidal thoughts with no plan. Reports she is upset because her ex- has her daughter. Denies EtOH and drugs. Patient has history of bipolar ADHD multiple other mental health complaints. Patient is calm. I have greeted and performed a rapid initial assessment of this patient. A comprehensive ED assessment and evaluation of the patient, analysis of test results and completion of the medical decision making process will be conducted by additional ED providers. Dictation of this chart was performed using voice recognition software; therefore, there may be some unintended grammatical errors. TRAVEL OUTSIDE OF THE [place] IN LAST 30 DAYS: No - Related Data Allergies/Adverse Reactions: amoxicillin [Amoxicillin] Allergy (Verified 05/20/19 11:46) rash, swelling ibuprofen Allergy (Verified 05/20/19 11:46) rash, swelling naproxen [Naproxen] Allergy (Verified 05/20/19 11:46) rash, swelling acetaminophen [From Tylenol] Adverse Reaction (Intermediate, Verified 05/20/19 11:46) rash, upset stomach Past Medical History - Past Medical History Cardiac Medical History: Denies: Hx Coronary Artery Disease, Hx Heart Attack, Hx Hypertension - low BP Pulmonary Medical History: Denies: Hx Asthma, Hx Bronchitis, Hx COPD, Hx Pneumonia Neurological Medical History: Denies: Hx Cerebrovascular Accident, Hx Seizures - possibly as a child Renal/ Medical History: Denies: Hx Peritoneal Dialysis Musculoskeltal Medical History: Reports Hx Arthritis - hands & knees Psychiatric Medical History: Reports: Hx Bipolar Disorder, Hx Depression Traumatic Medical History: Reports: Hx Fractures - right arm Past Surgical History: Reports: Hx Section - Immunizations Immunizations up to date: Yes Hx Diphtheria, Pertussis, Tetanus Vaccination: Yes History of Influenza Vaccine for 05/2017 - 10/2017 Season: Unknown Physical Exam - Vital signs Vitals: Temp Pulse Resp BP Pulse Ox 98.5 F 103 H 18 115/71 100 05/20/19 11:45 05/20/19 11:45 05/20/19 11:45 05/20/19 11:45 05/20/19 11:45 Course - Vital Signs Vital signs: Temp Pulse Resp BP Pulse Ox 98.5 F 103 H 18 115/71 100 05/20/19 11:45 05/20/19 11:45 05/20/19 11:45 05/20/19 11:45 05/20/19 11:45 Doctor's Discharge - Discharge Referrals: DESTINY ALEXANDER NP [Primary Care Provider] - Follow up as needed
[2019-05-20 12:13] LABS: ABSOLUTE BASOPHILS # (AUTO) 0.1 10^3/uL (0.0-0.2); ABSOLUTE EOSINOPHILS # (AUTO) 0.2 10^3/uL (0.0-0.6); ABSOLUTE LYMPHOCYTES (AUTO) 3.1 10^3/uL (0.5-4.7); ABSOLUTE MONOCYTES (AUTO) 1.5 10^3/uL (0.1-1.4); ABSOLUTE NEUT (AUTO) 6.9 10^3/uL (1.7-8.2); BASOPHILS % (AUTO) 0.6 % (0-2); EOSINOPHILS % (AUTO) 1.4 % (0-6); HEMATOCRIT 39.1 % (36.0-47.0); MEAN CORPUSCULAR HGB CONC 33.3 g/dL (32.0-36.0); MEAN CORPUSCULAR VOLUME 93 fl (80-97); MONOCYTES % (AUTO) 12.9 % (3-13); PLATELET COUNT 325 10^3/uL (150-450); RED CELL DISTRIBUTION WIDTH 13.3 % (11.5-14.0); SEGMENTED NEUTROPHILS % (AUTO) 59.1 % (42-78); TOTAL CELLS COUNTED % (AUTO) 100 %; WHITE BLOOD COUNT 11.7 10^3/uL (4.0-10.5)
[2019-05-20 12:23] LABS: APPEARANCE,URINE CLOUDY; BILIRUBIN,URINE NEGATIVE (NEGATIVE); COLOR,URINE YELLOW; GLUCOSE, URINE NEGATIVE (NEGATIVE); KETONES,URINE NEGATIVE (NEGATIVE); LEUKOCYTE ESTERASE,URINE MODERATE (NEGATIVE); NITRITE,URINE NEGATIVE (NEGATIVE); PROTEIN,URINE NEGATIVE (NEGATIVE); URINE SPECIFIC GRAVITY 1.018; UROBILINOGEN,URINE NEGATIVE mg/dL (<2.0)
[2019-05-20 12:45] LABS: ALBUMIN 4.1 g/dL (3.5-5.0); ALKALINE PHOSPHATASE 78 U/L (38-126); ANION GAP 11 (5-19); ASPARTATE AMINO TRANSFERASE 20 U/L (14-36); BILIRUBIN,DIRECT 0.2 mg/dL (0.0-0.4); BILIRUBIN,TOTAL 0.4 mg/dL (0.2-1.3); BLOOD UREA NITROGEN 10 mg/dL (7-20); CALCIUM 9.6 mg/dL (8.4-10.2); CARBON DIOXIDE 30 mmol/L (22-30); CHLORIDE 99 mmol/L (98-107); POTASSIUM 4.1 mmol/L (3.6-5.0); TOTAL PROTEIN 7.3 g/dL (6.3-8.2)
[2019-05-20 12:47] LABS: ACETAMINOPHEN < 10 ug/mL (10-30); ALCOHOL < 10 mg/dL (NONE DETECTED); SALICYLATE < 1.0 mg/dL (2.0-20.0)
[2019-05-20 12:51] LABS: GLUCOSE 66 mg/dL (75-110)
[2019-05-20 12:54] LABS: URINE AMPHETAMINES SCREEN UNCONFIRMED POSITIVE; URINE BARBITURATES SCREEN NEGATIVE; URINE BENZODIAZEPINES SCREEN NEGATIVE; URINE COCAINE SCREEN NEGATIVE; URINE MARIJUANA (THC) SCREEN NEGATIVE; URINE METHADONE SCREEN UNCONFIRMED POSITIVE; URINE PHENCYCLIDINE SCREEN NEGATIVE
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
[2019-05-20] MEDS ORDERED: SULFAMETHOXAZOLE/TRIMETHOPRIM 800-160 MG TABLET PO ONE (14:34)
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
[2019-05-20] MEDS ORDERED: OLANZAPINE 2.5 MG TABLET PO ONE (16:52)
[2019-05-20] MEDS ORDERED: SULFAMETHOXAZOLE/TRIMETHOPRIM 800-160 MG TABLET PO SCH (18:00)
[2019-05-20 18:12] VITALS: BP 102/85
--- NOTE | 2019-05-21 09:06 | EKG REPORT ---
SEVERITY:- OTHERWISE NORMAL ECG - SINUS TACHYCARDIA : Confirmed by: Roberto Mak 21-May-2019 09:05:46
== END 2019-05-20 18:12 | disposition home or self-care (01) ==
LOC: ER 11:38
DX: R45.851 Suicidal ideations (principal); N39.0 Urinary tract infection, site not specified; F19.10 Other psychoactive substance abuse, uncomplicated; F31.9 Bipolar disorder, unspecified; F90.9 Attention-deficit hyperactivity disorder, unspecified type; Z79.899 Other long term (current) drug therapy
CPT/HCPCS: 93005; 99285; 36415; 87086; 80307 ×4; 84703; 85025; 87088; 80053; 81001; 93010; J3490 ×2; 87186

== ENCOUNTER 2020-01-30 20:39 | Emergency (ER) | payer MEDICARE, MEDICAID ==
[2020-01-30 20:46] VITALS: BP 97/72
[2020-01-30] MEDS ORDERED: DIPH/PERTUSS(ACELL)/TETANUS VAC/PF 0.5 ML SYR (>=10YO) IM ONE (21:10)
[2020-01-30] MEDS ORDERED: CLINDAMYCIN HCL 150 MG CAPSULE PO ONE (21:11)
--- NOTE | 2020-01-30 21:15 | ER Document Report ---
HPI - HPI Patient complains to provider of: Finger pain Time Seen by Provider: 01/30/20 21:10 Onset: Yesterday Pain Level: 3 Context: This 24-year-old female presents emergency room today with left ring finger tenderness and swelling to the volar surface. Associated Symptoms: None Exacerbated by: Denies - CONSTITUTIONAL Constitutional: DENIES: Fever, Chills - EENT EENT: DENIES: Sore Throat, Ear Pain, Eye problems - NEURO Neurology: DENIES: Headache, Weakness, Vision blurred, Dizzinesss / Vertigo - CARDIOVASCULAR Cardiovascular: DENIES: Chest pain - RESPIRATORY Respiratory: DENIES: Trouble Breathing, Coughing - GASTROINTESTINAL Gastrointestinal: DENIES: Abdominal Pain, Black / Bloody Stools - URINARY Urinary: DENIES: Dysuria, Urgency, Frequency - REPRODUCTIVE Reproductive: DENIES: : - MUSCULOSKELETAL Musculoskeletal: REPORTS: Extremity pain - right index finger Past Medical History - General Information source: Patient - Social History Smoking Status: Never Smoker Chew tobacco use (# tins/day): No Frequency of alcohol use: None Drug Abuse: None Family History: None Patient has homicidal ideation: No - Past Medical History Cardiac Medical History: Denies: Hx Coronary Artery Disease, Hx Heart Attack, Hx Hypertension - low BP Pulmonary Medical History: Denies: Hx Asthma, Hx Bronchitis, Hx COPD, Hx Pneumonia Neurological Medical History: Denies: Hx Cerebrovascular Accident, Hx Seizures - possibly as a child Renal/ Medical History: Denies: Hx Peritoneal Dialysis Musculoskeletal Medical History: Reports Hx Arthritis - hands & knees Psychiatric Medical History: Reports: Hx Bipolar Disorder, Hx Depression Traumatic Medical History: Reports: Hx Fractures - right arm Past Surgical History: Reports: Hx Section - Immunizations Immunizations up to date: Yes Hx Diphtheria, Pertussis, Tetanus Vaccination: Yes Vertical Provider Document - CONSTITUTIONAL Agree With Documented VS: Yes - INFECTION CONTROL TRAVEL OUTSIDE OF THE [place] IN LAST 30 DAYS: No - HEENT HEENT: Atraumatic, Conjuctival Injection, Normocephalic, PERRLA - NECK Neck: Normal Inspection, Supple - RESPIRATORY Respiratory: Breath Sounds Normal, No Respiratory Distress - CARDIOVASCULAR Cardiovascular: Regular Rate, Regular Rhythm - GI/ABDOMEN Gastrointestinal: Abdomen Soft, Abdomen Non-Tender - BACK Back: Normal Inspection - MUSCULOSKELETAL/EXTREMETIES Musculoskeletal/Extremeties: MAEW - NEURO Level of Consciousness: Awake, Alert - DERM Integumentary: Warm - Erythema tenderness to volar surface of left finger there is no fluctuance at this point of time. She is able to move all affected joints rapid capillary refill, Dry Course - Re-evaluation Re-evalutation: 01/30/20 21:12 There appears to be a cellulitis developing at the finger. The patient will be placed on antibiotics she was advised to return to the emergency room in 24 hours for reevaluation. She should return sooner for any change worsening condition she was advised that if that did get worse she may potentially need to be admitted that we did want to provide her with the first opportunity to get better on an outpatient basis. - Vital Signs Vital signs: Temp Pulse Resp BP Pulse Ox 97.7 F 90 16 97/72 L 98 01/30/20 21:05 01/30/20 20:44 01/30/20 20:44 01/30/20 20:44 01/30/20 20:44 Discharge - Discharge Clinical Impression: Cellulitis Condition: Good Disposition: HOME, SELF-CARE Instructions: Cellulitis ([facility]) Additional Instructions: Warm soaks to affected area 4-5 times a day. Prescriptions: Clindamycin HCl [Cleocin HCl] 300 mg PO TID #60 capsule Referrals: PARTH PARIS DO [Primary Care Provider] - Follow up as needed
== END 2020-01-30 21:21 | disposition home or self-care (01) ==
LOC: ER 20:39
DX: L03.012 Cellulitis of left finger (principal); M79.645 Pain in left finger(s); Z23 Encounter for immunization
CPT/HCPCS: 99283; 90471; 90715; A9270